=== PATIENT | female | born 1960 | race Caucasian/White ===

== ENCOUNTER 2017-07-12 10:41 | Outpatient (CLI) | payer OTHER ==
--- NOTE | 2017-07-12 12:38 | RAD ---
FOUR VIEWS CERVICAL SPINE: History: Neck pain. FINDINGS: AP, lateral, and two open mouth odontoid views of the cervical spine obtained. Images demonstrate ACDF with fusion of the C5-6 vertebral levels. Anterior plate and screws are in p lace. Intervertebral disc hardware is also in place. Posterior osteophytes are seen at the C5-6 leve l. No evidence of acute fracture seen. IMPRESSION: ACDF at C5-6. POS: [facility]
== END 2017-07-12 10:42 | disposition home or self-care (01) ==
LOC: TBSIIMAG 10:41
PROVIDERS: ATTEND Physician Assistant
DX: M54.2 Cervicalgia (principal); Z98.1 Arthrodesis status
CPT/HCPCS: 72040

== ENCOUNTER 2017-07-13 08:42 | Outpatient (CLI) | payer OTHER ==
--- NOTE | 2017-07-13 16:21 | MRI ---
CERVICAL SPINE MRI WITH AND WITHOUT CONTRAST 07/13/17 CLINICAL HISTORY: Cervical disc degeneration. No prior MR imaging available. FINDINGS: There is susceptibility from ACDF spanning the C5 and 6 segments with susceptibility artifact that l imits evaluation within this region. Degenerative hypertrophy at the atlantodental articulation is p resent without high grade C1-2 level central canal stenosis. C2-3: There is no significant central canal or neural foraminal stenosis. C3-4: No significant central canal or neural foraminal stenosis. C4-5: There is a right paracentral disc protrusion superimposed upon Disc osteophyte complex. This d oes exert mass effect upon the ventral aspect of the cervical spinal cord with mild to moderate cent ral canal stenosis. There is mild left and minimal right foraminal narrowing. C5-6: Left asymmetric broad based osteophyte ridge present with susceptibility artifact from indwell ing hardware limiting assessment. There is abnormal increased T2 signal at the spinal cord, more not able to the left of midline. Moderate central canal stenosis with associated cord flattening is pres ent. Moderate bilateral neural foraminal stenosis. C6-7: There is a left subarticular disc protrusion superimposed upon disc osteophyte complex. This p roduces direct impingement upon the left C7 nerve root with moderate narrowing of the medial aspect of the left neural foramen. There is minimal right neural foraminal narrowing. Moderate stenosis inv olving the left aspect of the central canal within the subarticular zone region. There is ventral ma ss effect upon the left hemicord. C7-T1: No high grade central canal or neural foraminal stenosis. No acute marrow edema, compression fracture or significant subluxation. There is abnormal intramedullary enhancement of the left aspect of the cervical spinal cord at the C 5-6 level, localizing to the above described area of intramedullary T2 hyperintensity. IMPRESSION: Postoperative ACDF of C5-6 with posterior osteophyte ridge at the postoperative disc space level of C5-6 greater to the left of midline exerting mass effect upon the cervical spinal cord and producing abnormal intramedullary T2 hyperintensity in the left aspect of the cord with underlying enhancemen t most consistent with myelomalacia. Recommend correlation for clinical evidence of sequela from com pressive myelopathy. Additional multilevel degenerative changes of the cervical spine are discussed above. POS: [facility]
== END 2017-07-13 08:43 | disposition home or self-care (01) ==
LOC: SCSMRI 08:42
PROVIDERS: ATTEND Neurological Surgery
DX: M50.30 Other cervical disc degeneration, unspecified cervical region (principal); M47.812 Spondylosis without myelopathy or radiculopathy, cervical region; Z98.1 Arthrodesis status
CPT/HCPCS: 72156

== ENCOUNTER 2019-01-16 09:20 | Outpatient (CLI) | payer OTHER ==
--- NOTE | 2019-01-16 09:55 | RAD ---
4 VIEWS RIGHT ELBOW: Date: 01/16/19 COMPARISON: None. HISTORY: Fall 4 days ago with elbow pain. FINDINGS: Four views of the right elbow show no evidence of acute fracture or dislocation. No elbow effusion is seen. No degenerative changes are seen. IMPRESSION: Unremarkable exam. POS: [facility]
== END 2019-01-16 09:21 | disposition home or self-care (01) ==
LOC: SCSRAD 09:20
PROVIDERS: ATTEND Family Medicine
DX: S59.901A Unspecified injury of right elbow, initial encounter (principal)